=== PATIENT | female | born 1940 | race Caucasian/White ===

== ENCOUNTER 2021-06-09 16:06 | Emergency (ER) | payer MEDICARE ==
[~2021-06-09] VITALS: Ht 154.9 cm; Wt 55.0 kg
--- NOTE | 2021-06-09 16:15 | NUR ---
EKG COMPLETED. PT REFUSED ZOFRAN PER EMS.
[2021-06-09 17:00] LABS: BASOPHILS % (AUTO) 0 % (0-1); EOSINOPHILS % (AUTO) 2 % (1-7); LYMPHOCYTES % (AUTO) 26 % (22-44); MEAN CORPUSCULAR HEMOGLOBIN 31.8 pg (27.0-34.8); MEAN CORPUSCULAR HGB CONC 34.3 g/dL (32.4-35.8); MEAN PLATELET VOLUME 7.6 fL (7.4-10.4); MONOCYTES % (AUTO) 8 % (2-9); NEUTROPHILS % (AUTO) 63 % (42-75); PLATELET COUNT 187 x10^3/uL (130-400); RED BLOOD COUNT 3.46 x10^6/uL (3.82-5.3); RED CELL DISTRIBUTION WIDTH 12.9 % (9.6-15.2)
[2021-06-09] MEDS ORDERED: SODIUM CHLORIDE 0.9% 1,000ML IVBOLUS ONE (17:00)
[2021-06-09] MEDS ORDERED: SODIUM CHLORIDE FLUSH 10ML SYR IVF ONE (17:00)
[2021-06-09 17:08] LABS: ALANINE AMINOTRANSFERASE 25 U/L (12-78); ALBUMIN 3.3 g/dL (3.4-5.0); ANION GAP 4 mmol/L (5-15); CALCIUM 8.7 mg/dL (8.5-10.1); CHLORIDE 105 mmol/L (98-107); CREATININE 1.46 mg/dL (0.55-1.02)
[2021-06-09 17:19] LABS: ALKALINE PHOSPHATASE 53 U/L (45-117); BILIRUBIN,TOTAL 0.5 mg/dL (0.2-1.0)
[2021-06-09] MEDS ORDERED: MECLIZINE CHEWABLE 25 MG TAB ONE (17:38)
[2021-06-09 17:48] VITALS: BP 165/71
[2021-06-09 17:58] LABS: MICROSCOPIC AUTO
[2021-06-09] MEDS ORDERED: MECLIZINE CHEWABLE 25 MG TAB PO ONE (18:00)
[2021-06-09] MEDS ORDERED: SODIUM CHLORIDE 0.9%, 500ML IVBOLUS ONE (18:00)
[2021-06-09] MEDS ORDERED: CEFTRIAXONE 1,000 MG in DEXTROSE 5% 50 ML IVPB ONE (18:30)
--- NOTE | 2021-06-09 18:43 | NUR ---
PT STARTED ON ASIYA IVPB. INFUSING WELL. AWARE OF PLAN TO DC HOME AFTERWARDS.
--- NOTE | 2021-06-09 19:11 | NUR ---
ASSISTED PATIENT TO THE BATHROOM. ABLE TO AMBULATE INDEPENDETLY. WHEN RN ENTERED ROOM ROCEPHIN WAS ALREADY HANGING AND COMPLETED. NOT DOCUMENTED IN EMAR.
--- NOTE | 2021-06-09 19:19 | NUR ---
Patient given discharge instructions and they have confirmed that they understand the instructions. Patient ambulatory with steady gait. NAD, all questions answered appropriately, denies additional needs at this time. No personal belongings left in room after discharge.
--- NOTE | 2021-06-09 19:20 | NUR ---
PROVIDED PATIENT WITH TAXI VOUCHER AT DISCHARGE.
== END 2021-06-09 19:21 | disposition home or self-care (01) ==
LOC: ED 16:30
DX: R42 Dizziness and giddiness (principal); N39.0 Urinary tract infection, site not specified; I10 Essential (primary) hypertension; E11.9 Type 2 diabetes mellitus without complications; Z88.9 Allergy status to unspecified drugs, medicaments and biological substances
CPT/HCPCS: 36415; 80053; 81001; 83735; 84443; 85025; 87077; 87086; 87186; 93005; 96360; 96361; 99284; J7030; J7040